=== PATIENT | female | born 1950 | race Caucasian/White ===

== ENCOUNTER 2023-11-20 23:15 | Emergency (ER) | payer MEDICARE, OTHER, SELFPAY ==
[2023-11-20 23:21] VITALS: BP 182/88
[2023-11-21 00:06] LABS: % Basophils 0.3 % (0-2); % Eosinophils 0.4 % (0-6); % Immature Granulocytes 0.2 % (0-0.5); % Lymphocytes 64.9 % (20.5-51.1); % Neutrophils 30.2 % (42.2-75.2); Absolute Eosinophils 0.1 10^3/uL (0-0.7); Absolute Lymphocytes 8.5 10^3/uL (1.2-3.4); Absolute Monocytes 0.5 10^3/uL (0.1-0.6); Hematocrit 36.2 % (37.0-47.0); Hemoglobin 12.6 g/dL (12.0-16.0); Mean Corp Hgb Conc. 34.8 g/dL (33.0-37.0); Mean Corpuscular Hgb 32.1 pg (27.0-31.0); Mean Corpuscular Volume 92.3 fL (81.0-99.0); Mean Platelet Volume 9.8 fL (7.4-10.4); Nucleated Red Blood Cells % 0 %; Platelet Count 221 10^3/uL (130-400); Red Blood Cell Count 3.92 10^6/uL (4.20-5.40); Red Cell Dist. Width 12.3 % (11.5-14.5); White Blood Cell Count 13.1 10^3/uL (4.8-10.8)
[2023-11-21 00:22] LABS: ALT (SGPT) 28 U/L (0-35); AST (SGOT) 27 U/L (14-36); Albumin 4.2 g/dl (3.5-5.0); Alkaline Phosphatase 58 U/L (38-126); Blood Urea Nitrogen 21 mg/dl (7-17); Calcium 9.1 mg/dl (8.4-10.2); Carbon Dioxide 28 mmol/L (22-30); Chloride 103 mmol/L (98-107); Glucose 119 mg/dl (70-99); Potassium 3.5 mmol/L (3.5-5.1); Sodium 135 mmol/L (135-145); Total Bilirubin 0.5 mg/dl (0.2-1.3); Total Protein 6.6 g/dl (6.3-8.2); eGFR > 60.00
[2023-11-21 01:02] VITALS: BMI 19.8
[2023-11-21 01:06] VITALS: BP 160/91
--- NOTE | 2023-11-21 01:22 | ED.GENMED ---
History of Present Illness
General
Chief Complaint: Heart Rate Problem
Source: patient
Time Seen by Provider: 11/21/23 01:06
Travel History
Have you had any contact with someone who has COVID-19?: No
Do you have any symptoms of coronavirus? Fever > 100 degrees, chills, cough, shortness of breath, sore throat, loss of taste or smell, muscle aches, or headache?: No
History of Present Illness
History of Present Illness:
73-year-old female presents to the emergency department for evaluation of palpitations, sense of dyspnea and mild headache. Symptoms have been present for the past couple days. Nothing seems to makes discomfort worse. Patient is prescribed
diltiazem for hypertension and she has been compliant with it. She denies taking any [id number] medications or increased caffeine use. She describes the chest discomfort as a vague sense of restriction. She feels better when she takes a
couple deep breaths.
Past History
Past History
ED Past Medical History: Cancer (CLL), Hypothyroidism and Other (MVP, DVT/PE )
ED Past Surgical History: Cholecystectomy and Gynecological
Social History
Tobacco: Non-smoker
Alcohol: None
Drug: None
Personal:
Living: with family
Phy Exam
Physical Exam
Physical Exam:
General: Awake, Alert, Oriented X3. No acute distress.
Vitals: unremarkable
Head: Atraumatic
Eyes: Pupils equal, EOMI
Throat: Airway intact, no exudates
Neck: Trachea midline
Lungs: Clear and equal b/l
Heart: Regular rate, no murmurs
Abd: Soft, Nontender, No pulsatile mass
Neuro: Nonfocal
Skin: Warm, dry, no rash
Extremities: pulses equal b/l, no edema
Course
Orders/Labs/Results
Orders:
Orders
11/20/23 23:19
EKG [Electrocardiogram (*1)] Urgent
Reason for Study: Palpitations
11/20/23 23:20
EKG- Treatment ONCE
11/20/23 23:24
CMP [Comprehensive Metabolic Panel] Urgent
Complete Blood Count/With Diff Urgent
11/21/23 01:12
Troponin I Urgent
11/21/23 01:21
CR Chest - 2 Views Urgent
Comment:
Reason For Exam: chest pain
11/21/23 01:41
Urinalysis Reflex To Culture Urgent
Date Specimen was Collected: 11/21/23
Time Specimen was Collected: 01:25
Urine Microscopic Reflex Cult Urgent
Abnormal Lab Results
11/21/23 11/21/23
00:01 01:41
WBC 13.1 H 10^3/uL
(4.8-10.8)
RBC 3.92 L 10^6/uL
(4.20-5.40)
Hct 36.2 L %
(37.0-47.0)
MCH 32.1 H pg
(27.0-31.0)
Absolute Lymphs (auto) 8.5 H 10^3/uL
(1.2-3.4)
Neutrophils % 30.2 L %
(42.2-75.2)
Lymphocytes % 64.9 H %
(20.5-51.1)
BUN 21 H mg/dl
(7-17)
Glucose 119 H mg/dl
(70-99)
Leukocyte Esterase Rfl Trace A
(Negative)
11/21/23 00:01
11/21/23 00:01
Vital Signs
Initial and Last Documented VS:
Initial Vital Signs
Temp Pulse Resp BP Pulse Ox
97.8 F 70 18 182/88 100
11/20/23 23:21 11/20/23 23:21 11/20/23 23:21 11/20/23 23:21 11/20/23 23:21
Last Documented Vital Signs
Temp Pulse Resp BP Pulse Ox
97.8 F 70 12 136/71 95
11/20/23 23:21 11/21/23 02:30 11/21/23 02:30 11/21/23 02:09 11/21/23 02:30
MDM/Problems Addressed
Differential Diagnosis Includes:
PVCs, PACs, cardiac dysrhythmia
MDM/Problems Addressed:
Patient presents with sensation of palpitations. Workup here is unremarkable. No dysrhythmia noted on the monitor. Patient stable for discharge home and outpatient follow-up.
Chronic conditions affecting care: HTN
*Radiology
Radiology exam reviewed: preliminary read by ED provider (No acute disease noted on my personal review of the chest x-ray)
*Pulse Oximetry
Patient hypoxic: no
*EKG
Interpreted by ED Provider?: Yes
Interpretation: abnormal
Heart Rate: 55
Rate: bradycardiac
Rhythm: sinus
[place]: normal axis
Interval: normal interval
QRS Pattern: normal QRS
Ischemia: no ischemia
*Sr Community Manager Interpretation
Rate: bradycardiac
Interpretation: abnormal
Heart Rate: 55
Rhythm: sinus
*Critical Care Note
Total Time (30-74mins, 75-104mins- exclusive of procedures): Not Applicable
ED Attending Note
-
Portions of this chart may have been created with voice recognition software.� Occasional wrong word or��sound alike� substitutions may have occurred due to the inherent limitations of voice recognition software.
Discharge Plan
Departure
Patient Disposition: Home (Routine Discharge)
Date of Disposition: 11/21/23
Time of Disposition: 02:58
Patient with high blood pressure during this ER visit?: Yes
Condition: Good
Discharge Problem:
Palpitations
Instructions: Palpitations (DC), BLOOD PRESSURE
Prescriptions:
No Action
thyroid (pork) [Garnett Thyroid] 30 MG tablet
45 mg PO DAILY
calcium carbonate [Oyster Shell Calcium 500] 500 MG tablet
500 mg PO BID@1200,1800
ascorbic acid (vitamin C) [Vitamin C] 500 MG tablet
500 mg PO DAILY
digestive enzymes 1 TAB.CHEW tablet,chewable
1 tab.chew PO AC
cholecalciferol (vitamin D3) 2,000 UNITS tablet
2,000 unit PO DAILY
multivitamin with folic acid [Tab-A-Matthew] 1 TABLET tablet
1 tab PO DAILY
magnesium oxide 400 MG tablet
400 mg PO BID@1800,2200
Vitamin B Liquid
1 drp PO DAILY
Vitamin B12 Sublingual
1 tab sublingual DAILY
Eliquis 5 MG tablet
5 mg PO BID Qty: 60 0RF
Rx Instructions:
take 10 twice a day for 14 doses (1 week) then 5 md twice a day
diltiazem HCl 120 MG capsule,extended release 24hr
120 mg PO BID
hydrochlorothiazide
PO DAILY
Rx Instructions:
unsure of dose
Interventions
Interventions:
*Risk Screen - Suicide Last Done: 11/20/23 23:21
*General Assessment Last Done: 11/21/23 01:07
*Neglect/Abuse Screening Last Done: 11/20/23 23:21
ED- Fall Risk Assessment Last Done: 11/21/23 01:08
*ED COVID-19 Vaccine History Last Done: 11/21/23 01:07
ED- Cardiac Assessment Last Done: 11/21/23 02:02
ED- Neurological Assessment Last Done: 11/21/23 02:02
ED- Pulmonary Assessment Last Done: 11/21/23 02:02
[2023-11-21 01:42] LABS: Troponin I < 0.012 ng/ml
[2023-11-21 02:09] VITALS: BP 136/71
[2023-11-21 02:29] LABS: Urine Albumin Negative (Neg - Trace); Urine Bilirubin Negative (Negative); Urine Character Clear (Clear); Urine Color Yellow; Urine Glucose Negative (Negative); Urine Ketone Negative (Negative); Urine Leukocyte Trace (Negative); Urine Nitrite Negative (Negative); Urine Occult Blood Negative (Negative); Urine Specific Gravity 1.015 (<1.030); Urine Urobilinogen Negative (Neg - 1+)
[2023-11-21 03:12] LABS: Urine Bacteria Few (Negative); Urine White Cell 0-2 /HPF (0-5)
== END 2023-11-21 03:05 | disposition home or self-care (01) ==
LOC: EMR 23:15
PROVIDERS: Student in an Organized Health Care Education/Training Program; EMERGENCY PHYSICIAN Emergency Medicine
DX: R00.2 Palpitations (principal); R06.00 Dyspnea, unspecified; R51.9 Headache, unspecified; I10 Essential (primary) hypertension; R07.89 Other chest pain; C91.10 Chronic lymphocytic leukemia of B-cell type not having achieved remission; E03.9 Hypothyroidism, unspecified; I34.1 Nonrheumatic mitral (valve) prolapse; Z86.718 Personal history of other venous thrombosis and embolism; Z86.711 Personal history of pulmonary embolism
CPT/HCPCS: 99283; 71046; 80053; 81003; 81015; 84484; 85025; 93005

== ENCOUNTER → 2023-12-10 09:40 | Outpatient (REF) | payer MEDICARE, OTHER, SELFPAY ==
[2023-12-10 10:31] LABS: % Basophils 0.4 % (0-2); % Eosinophils 1.1 % (0-6); % Immature Granulocytes 0.3 % (0-0.5); % Lymphocytes 58.5 % (20.5-51.1); % Monocytes 5.4 % (1.7-9.3); % Neutrophils 34.3 % (42.2-75.2); Absolute Basophils 0.1 10^3/uL (0-0.2); Absolute Eosinophils 0.1 10^3/uL (0-0.7); Absolute Lymphocytes 6.8 10^3/uL (1.2-3.4); Absolute Monocytes 0.6 10^3/uL (0.1-0.6); Hematocrit 38.8 % (37.0-47.0); Mean Corp Hgb Conc. 33.5 g/dL (33.0-37.0); Mean Corpuscular Volume 95.6 fL (81.0-99.0); Mean Platelet Volume 10.7 fL (7.4-10.4); Nucleated Red Blood Cells % 0 %; Platelet Count 189 10^3/uL (130-400); Red Blood Cell Count 4.06 10^6/uL (4.20-5.40); Red Cell Dist. Width 13.2 % (11.5-14.5); White Blood Cell Count 11.7 10^3/uL (4.8-10.8)
== END ==
LOC: REG 09:40
PROVIDERS: ATTENDING PHYSICIAN Internal Medicine Hematology & Oncology; FAMILY PHYSICIAN Family Medicine
DX: C91.10 Chronic lymphocytic leukemia of B-cell type not having achieved remission (principal); I82.B12 Acute embolism and thrombosis of left subclavian vein; C7A.029 Malignant carcinoid tumor of the large intestine, unspecified portion
CPT/HCPCS: 36415; 85025

== ENCOUNTER → 2023-12-18 06:27 | Day surgery (SDC) | payer MEDICARE, OTHER, SELFPAY | LOC: GI 06:27 | PROVIDERS: ATTENDING PHYSICIAN Internal Medicine Gastroenterology | DX: K31.89 Other diseases of stomach and duodenum (principal); R13.10 Dysphagia, unspecified; R00.2 Palpitations; R12 Heartburn; K44.9 Diaphragmatic hernia without obstruction or gangrene; K29.50 Unspecified chronic gastritis without bleeding | CPT/HCPCS: 43239; 88305; 88342 ==

== ENCOUNTER → 2023-12-26 09:00 | Outpatient (REF) | payer MEDICARE, OTHER, SELFPAY ==
[2023-12-26 10:19] LABS: % Basophils 0.5 % (0-2); % Eosinophils 1.3 % (0-6); % Immature Granulocytes 0.3 % (0-0.5); % Lymphocytes 57.8 % (20.5-51.1); % Monocytes 5.7 % (1.7-9.3); % Neutrophils 34.4 % (42.2-75.2); Absolute Basophils 0.1 10^3/uL (0-0.2); Absolute Eosinophils 0.2 10^3/uL (0-0.7); Absolute Lymphocytes 6.7 10^3/uL (1.2-3.4); Absolute Monocytes 0.7 10^3/uL (0.1-0.6); Hematocrit 39.6 % (37.0-47.0); Hemoglobin 13.3 g/dL (12.0-16.0); Mean Corp Hgb Conc. 33.6 g/dL (33.0-37.0); Mean Corpuscular Hgb 32.4 pg (27.0-31.0); Mean Corpuscular Volume 96.4 fL (81.0-99.0); Mean Platelet Volume 10.4 fL (7.4-10.4); Nucleated Red Blood Cells % 0 %; Platelet Count 221 10^3/uL (130-400); Red Blood Cell Count 4.11 10^6/uL (4.20-5.40); Red Cell Dist. Width 13.1 % (11.5-14.5); White Blood Cell Count 11.6 10^3/uL (4.8-10.8)
[2023-12-26 11:08] LABS: ALT (SGPT) 22 U/L (0-35); AST (SGOT) 27 U/L (14-36); Albumin 4.1 g/dl (3.5-5.0); Alkaline Phosphatase 60 U/L (38-126); Blood Urea Nitrogen 23 mg/dl (7-17); Calcium 9.2 mg/dl (8.4-10.2); Carbon Dioxide 31 mmol/L (22-30); Chloride 100 mmol/L (98-107); Glucose 74 mg/dl (70-99); Potassium 3.9 mmol/L (3.5-5.1); Sodium 134 mmol/L (135-145); Total Bilirubin 0.7 mg/dl (0.2-1.3); Total Protein 6.3 g/dl (6.3-8.2); eGFR > 60.00
[2023-12-26 11:21] LABS: Free T3 3.34 pg/ml (2.77-5.27); Free T4 0.82 ng/dl (0.78-2.19)
[2023-12-26 11:35] LABS: TSH 0.92 uIU/ml (0.47-4.68)
== END ==
LOC: REG 09:00
PROVIDERS: ATTENDING PHYSICIAN Internal Medicine Cardiovascular Disease; FAMILY PHYSICIAN Family Medicine
DX: I10 Essential (primary) hypertension (principal); E03.9 Hypothyroidism, unspecified
CPT/HCPCS: 36415; 80053; 84439; 84443; 84481; 85025

== ENCOUNTER → 2024-01-31 14:26 | Outpatient (REF) | payer MEDICARE, OTHER, SELFPAY | LOC: RCS 14:26 | PROVIDERS: ATTENDING PHYSICIAN Physician Assistant Medical; FAMILY PHYSICIAN Family Medicine | DX: I49.3 Ventricular premature depolarization (principal) | CPT/HCPCS: 93306 ==

== ENCOUNTER → 2024-02-06 06:35 | Outpatient (REF) | payer MEDICARE, OTHER, SELFPAY ==
[2024-02-06 07:10] LABS: % Basophils 0.5 % (0-2); % Eosinophils 0.9 % (0-6); % Immature Granulocytes 0.3 % (0-0.5); % Lymphocytes 64.6 % (20.5-51.1); % Monocytes 4.8 % (1.7-9.3); % Neutrophils 28.9 % (42.2-75.2); Absolute Basophils 0.1 10^3/uL (0-0.2); Absolute Eosinophils 0.1 10^3/uL (0-0.7); Absolute Lymphocytes 8.5 10^3/uL (1.2-3.4); Absolute Monocytes 0.6 10^3/uL (0.1-0.6); Absolute Neutrophils 3.8 10^3/uL (1.4-6.5); Hematocrit 40.8 % (37.0-47.0); Hemoglobin 13.3 g/dL (12.0-16.0); Mean Corp Hgb Conc. 32.6 g/dL (33.0-37.0); Mean Corpuscular Volume 98.3 fL (81.0-99.0); Mean Platelet Volume 10.3 fL (7.4-10.4); Nucleated Red Blood Cells % 0 %; Platelet Count 230 10^3/uL (130-400); Red Blood Cell Count 4.15 10^6/uL (4.20-5.40); Red Cell Dist. Width 12.7 % (11.5-14.5); White Blood Cell Count 13.2 10^3/uL (4.8-10.8)
[2024-02-06 07:45] LABS: ALT (SGPT) 20 U/L (0-35); AST (SGOT) 23 U/L (14-36); Albumin 4.1 g/dl (3.5-5.0); Alkaline Phosphatase 94 U/L (38-126); Blood Urea Nitrogen 23 mg/dl (7-17); Calcium 9.4 mg/dl (8.4-10.2); Carbon Dioxide 32 mmol/L (22-30); Chloride 103 mmol/L (98-107); Glucose 91 mg/dl (70-99); HDL Cholesterol 108 mg/dl; LDL Cholesterol, Calculated 58 mg/dl; Potassium 4.1 mmol/L (3.5-5.1); Sodium 141 mmol/L (135-145); Total Bilirubin 0.7 mg/dl (0.2-1.3); Total Cholesterol 181 mg/dl (50-199); Total Protein 6.4 g/dl (6.3-8.2); Triglyceride 77 mg/dl (10-149); Very Low Density Lipoprotein 15 mg/dl (0-30); eGFR > 60.00
[2024-02-06 08:15] LABS: TSH Reflex To Free T4 1.79 uIU/ml (0.47-4.68)
== END ==
LOC: REG 06:35
PROVIDERS: ATTENDING PHYSICIAN Internal Medicine Cardiovascular Disease; FAMILY PHYSICIAN Family Medicine
DX: I10 Essential (primary) hypertension (principal); C91.10 Chronic lymphocytic leukemia of B-cell type not having achieved remission; D3A.00 Benign carcinoid tumor of unspecified site; Z13.1 Encounter for screening for diabetes mellitus; E03.9 Hypothyroidism, unspecified; Z13.6 Encounter for screening for cardiovascular disorders
CPT/HCPCS: 36415; 80053; 80061; 84443; 85025

== ENCOUNTER → 2024-03-29 09:23 | Outpatient (REF) | payer MEDICARE, OTHER, SELFPAY | LOC: WDC 09:23 | PROVIDERS: ATTENDING PHYSICIAN Family Medicine | DX: Z12.31 Encounter for screening mammogram for malignant neoplasm of breast (principal) | CPT/HCPCS: 77063; 77067 ==

== ENCOUNTER → 2024-04-23 07:03 | Outpatient (REF) | payer MEDICARE, OTHER, SELFPAY ==
[2024-04-23 08:03] LABS: ALT (SGPT) 19 U/L (0-35); AST (SGOT) 24 U/L (14-36); Albumin 4.3 g/dl (3.5-5.0); Alkaline Phosphatase 65 U/L (38-126); Blood Urea Nitrogen 22 mg/dl (7-17); Calcium 9.6 mg/dl (8.4-10.2); Carbon Dioxide 33 mmol/L (22-30); Chloride 102 mmol/L (98-107); Glucose 94 mg/dl (70-99); HDL Cholesterol 105 mg/dl; LDL Cholesterol, Calculated 72 mg/dl; Potassium 4.2 mmol/L (3.5-5.1); Sodium 139 mmol/L (135-145); Total Bilirubin 0.8 mg/dl (0.2-1.3); Total Cholesterol 188 mg/dl (50-199); Total Protein 6.4 g/dl (6.3-8.2); Triglyceride 59 mg/dl (10-149); Very Low Density Lipoprotein 11 mg/dl (0-30); eGFR > 60.00
[2024-04-23 08:19] LABS: % Basophils 0.5 % (0-2); % Eosinophils 1.9 % (0-6); % Immature Granulocytes 0.2 % (0-0.5); % Lymphocytes 65.9 % (20.5-51.1); % Monocytes 4.2 % (1.7-9.3); % Neutrophils 27.3 % (42.2-75.2); Absolute Basophils 0.1 10^3/uL (0-0.2); Absolute Eosinophils 0.3 10^3/uL (0-0.7); Absolute Lymphocytes 8.5 10^3/uL (1.2-3.4); Absolute Monocytes 0.5 10^3/uL (0.1-0.6); Absolute Neutrophils 3.5 10^3/uL (1.4-6.5); Hematocrit 39.4 % (37.0-47.0); Hemoglobin 13.3 g/dL (12.0-16.0); Mean Corp Hgb Conc. 33.8 g/dL (33.0-37.0); Mean Corpuscular Volume 94.7 fL (81.0-99.0); Mean Platelet Volume 10.5 fL (7.4-10.4); Nucleated Red Blood Cells % 0 %; Platelet Count 217 10^3/uL (130-400); Red Blood Cell Count 4.16 10^6/uL (4.20-5.40); Red Cell Dist. Width 12.7 % (11.5-14.5); White Blood Cell Count 12.9 10^3/uL (4.8-10.8)
[2024-04-23 08:41] LABS: TSH Reflex To Free T4 1.64 uIU/ml (0.47-4.68)
== END ==
LOC: REG 07:03
PROVIDERS: ATTENDING PHYSICIAN Family Medicine
DX: E78.2 Mixed hyperlipidemia (principal); C91.10 Chronic lymphocytic leukemia of B-cell type not having achieved remission; Q60.0 Renal agenesis, unilateral; Z13.1 Encounter for screening for diabetes mellitus; E03.9 Hypothyroidism, unspecified; Z13.6 Encounter for screening for cardiovascular disorders
CPT/HCPCS: 36415; 80053; 80061; 84443; 85025

== ENCOUNTER → 2024-05-16 06:36 | Outpatient (REF) | payer MEDICARE, OTHER, SELFPAY | LOC: MRI 06:36 | PROVIDERS: ATTENDING PHYSICIAN Registered Nurse; FAMILY PHYSICIAN Family Medicine | DX: G44.321 Chronic post-traumatic headache, intractable (principal); S00.93XD Contusion of unspecified part of head, subsequent encounter; V89.2XXD Person injured in unspecified motor-vehicle accident, traffic, subsequent encounter | CPT/HCPCS: 70551 ==

== ENCOUNTER → 2024-06-09 13:03 | Outpatient (REF) | payer MEDICARE, OTHER, SELFPAY ==
[2024-06-09 15:22] LABS: Hematocrit 37.5 % (37.0-47.0); Hemoglobin 12.3 g/dL (12.0-16.0); Mean Corp Hgb Conc. 32.8 g/dL (33.0-37.0); Mean Corpuscular Hgb 31.3 pg (27.0-31.0); Mean Corpuscular Volume 95.4 fL (81.0-99.0); Mean Platelet Volume 11.2 fL (7.4-10.4); Platelet Count 213 10^3/uL (130-400); Red Blood Cell Count 3.93 10^6/uL (4.20-5.40); Red Cell Dist. Width 12.1 % (11.5-14.5); White Blood Cell Count 12.7 10^3/uL (4.8-10.8)
[2024-06-09 15:44] LABS: % Basophils 0.4 % (0-2); % Eosinophils 0.6 % (0-6); % Immature Granulocytes 0.2 % (0-0.5); % Lymphocytes 54.9 % (20.5-51.1); % Monocytes 4.5 % (1.7-9.3); % Neutrophils 39.4 % (42.2-75.2); Absolute Basophils 0.1 10^3/uL (0-0.2); Absolute Eosinophils 0.1 10^3/uL (0-0.7); Absolute Monocytes 0.6 10^3/uL (0.1-0.6); Nucleated Red Blood Cells % 0 %
[2024-06-09 17:36] LABS: IgG 613 mg/dl (700-1600)
== END ==
LOC: REG 13:03
PROVIDERS: ATTENDING PHYSICIAN Internal Medicine Hematology & Oncology; FAMILY PHYSICIAN Family Medicine
DX: C91.10 Chronic lymphocytic leukemia of B-cell type not having achieved remission (principal); I82.B12 Acute embolism and thrombosis of left subclavian vein; C7A.029 Malignant carcinoid tumor of the large intestine, unspecified portion
CPT/HCPCS: 36415; 82784; 85025

== ENCOUNTER → 2024-07-24 09:50 | Outpatient (REF) | payer MEDICARE, OTHER, SELFPAY ==
[2024-07-24 10:29] LABS: Urine Albumin Negative (Neg - Trace); Urine Bilirubin Negative (Negative); Urine Character Clear (Clear); Urine Color Straw; Urine Glucose Negative (Negative); Urine Ketone Negative (Negative); Urine Leukocyte Negative (Negative); Urine Nitrite Negative (Negative); Urine Occult Blood Negative (Negative); Urine Specific Gravity 1.005 (<1.030); Urine Urobilinogen Negative (Neg - 1+)
[2024-07-24 10:46] LABS: Mean Corp Hgb Conc. 33.3 g/dL (33.0-37.0); Mean Corpuscular Hgb 31.3 pg (27.0-31.0); Mean Platelet Volume 9.9 fL (7.4-10.4); Platelet Count 224 10^3/uL (130-400); Red Blood Cell Count 4.15 10^6/uL (4.20-5.40); Red Cell Dist. Width 12.8 % (11.5-14.5); White Blood Cell Count 15.2 10^3/uL (4.8-10.8)
[2024-07-24 11:12] LABS: % Basophils 0.4 % (0-2); % Immature Granulocytes 0.3 % (0-0.5); % Lymphocytes 63.1 % (20.5-51.1); % Neutrophils 31.2 % (42.2-75.2); Absolute Basophils 0.1 10^3/uL (0-0.2); Absolute Eosinophils 0.2 10^3/uL (0-0.7); Absolute Lymphocytes 9.6 10^3/uL (1.2-3.4); Absolute Monocytes 0.6 10^3/uL (0.1-0.6); Absolute Neutrophils 4.8 10^3/uL (1.4-6.5); Blood Urea Nitrogen 18 mg/dl (7-17); Calcium 9.2 mg/dl (8.4-10.2); Carbon Dioxide 29 mmol/L (22-30); Chloride 101 mmol/L (98-107); Glucose 95 mg/dl (70-99); Nucleated Red Blood Cells % 0.1 %; Potassium 3.8 mmol/L (3.5-5.1); Sodium 139 mmol/L (135-145); eGFR > 60.00
[2024-07-24 11:35] LABS: TSH 0.95 uIU/ml (0.47-4.68)
[2024-07-24 11:54] LABS: Vitamin B12 986 pg/ml (239-931)
== END ==
LOC: REG 09:50
PROVIDERS: FAMILY PHYSICIAN Family Medicine
DX: N39.0 Urinary tract infection, site not specified (principal); Q60.0 Renal agenesis, unilateral; I10 Essential (primary) hypertension; Z79.899 Other long term (current) drug therapy; R41.3 Other amnesia
CPT/HCPCS: 36415; 80048; 81003; 82607; 84443; 85025; 87086

== ENCOUNTER → 2024-08-01 12:01 | Outpatient (REF) | payer MEDICARE, OTHER, SELFPAY | LOC: REG 12:01 | PROVIDERS: ATTENDING PHYSICIAN Nurse Practitioner Adult Health; FAMILY PHYSICIAN Family Medicine | DX: C91.10 Chronic lymphocytic leukemia of B-cell type not having achieved remission (principal); I82.B12 Acute embolism and thrombosis of left subclavian vein; C7A.029 Malignant carcinoid tumor of the large intestine, unspecified portion | CPT/HCPCS: 36415; 86316 ==

== ENCOUNTER → 2024-08-04 09:33 | Outpatient (REF) | payer MEDICARE, OTHER, SELFPAY ==
[2024-08-06 18:47] LABS: 24 Hour Urine Total Volume 2850 mL; 5HIAA, 24 Hour Urine 5 mg/d (0-15); 5HIAA, Urine 1.6 mg/L; 5HIAA/Creatinine Ratio 5 mg/gCR (0-14); Creatinine, Urine 24 Hour 998 mg/d (500-1400); Creatinine, Urine per Volume 35 mg/dL; Urine Collection Length 24 hr
== END ==
LOC: REG 09:33
PROVIDERS: ATTENDING PHYSICIAN Nurse Practitioner Adult Health; FAMILY PHYSICIAN Family Medicine
DX: C91.10 Chronic lymphocytic leukemia of B-cell type not having achieved remission (principal); I82.B12 Acute embolism and thrombosis of left subclavian vein; C7A.029 Malignant carcinoid tumor of the large intestine, unspecified portion
CPT/HCPCS: 81050; 83497

== ENCOUNTER → 2024-08-09 07:16 | Outpatient (REF) | payer MEDICARE, OTHER, SELFPAY ==
[2024-08-09 08:47] LABS: Hematocrit 40.7 % (37.0-47.0); Hemoglobin 12.8 g/dL (12.0-16.0); Mean Corp Hgb Conc. 31.4 g/dL (33.0-37.0); Mean Corpuscular Hgb 31.4 pg (27.0-31.0); Mean Corpuscular Volume 99.8 fL (81.0-99.0); Mean Platelet Volume 10.8 fL (7.4-10.4); Platelet Count 229 10^3/uL (130-400); Red Blood Cell Count 4.08 10^6/uL (4.20-5.40); Red Cell Dist. Width 13.2 % (11.5-14.5); White Blood Cell Count 13.9 10^3/uL (4.8-10.8)
[2024-08-09 09:14] LABS: ALT (SGPT) 25 U/L (0-35); AST (SGOT) 28 U/L (14-36); Albumin 3.8 g/dl (3.5-5.0); Alkaline Phosphatase 77 U/L (38-126); Blood Urea Nitrogen 22 mg/dl (7-17); Calcium 8.9 mg/dl (8.4-10.2); Carbon Dioxide 32 mmol/L (22-30); Chloride 102 mmol/L (98-107); Glucose 79 mg/dl (70-99); HDL Cholesterol 106 mg/dl; LDL Cholesterol, Calculated 74 mg/dl; Sodium 139 mmol/L (135-145); Total Bilirubin 0.7 mg/dl (0.2-1.3); Total Cholesterol 189 mg/dl (50-199); Triglyceride 47 mg/dl (10-149); Very Low Density Lipoprotein 9 mg/dl (0-30); eGFR > 60.00
[2024-08-09 09:44] LABS: Absolute Neutrophils -Man Diff 5.4 10^3/uL (1.4-6.5); Atypical Lymphocytes 14 %; Band Neutrophils 0 % (0-3); Eosinophils 3 % (0-6); Lymphocytes 42 % (20-51); Monocytes 1 % (2-9); Platelets Checked Yes; Segmented Neutrophils 39 % (42-75)
[2024-08-09 09:45] LABS: Normal RBC Morphology Yes; Total Cells Counted 100
== END ==
LOC: REG 07:16
PROVIDERS: ATTENDING PHYSICIAN Family Medicine
DX: Z13.1 Encounter for screening for diabetes mellitus (principal); C91.10 Chronic lymphocytic leukemia of B-cell type not having achieved remission; E03.9 Hypothyroidism, unspecified
CPT/HCPCS: 36415; 80053; 80061; 84443; 85025

== ENCOUNTER → 2024-09-08 15:44 | Outpatient (REF) | payer MEDICARE, OTHER, SELFPAY ==
[2024-09-08 16:59] LABS: D-Dimer 0.28 ug/mlFEU (0.00-0.50)
[2024-09-08 17:54] LABS: Hematocrit 37.3 % (37.0-47.0); Hemoglobin 12.3 g/dL (12.0-16.0); Mean Corpuscular Hgb 31.4 pg (27.0-31.0); Mean Corpuscular Volume 95.2 fL (81.0-99.0); Mean Platelet Volume 10.4 fL (7.4-10.4); Platelet Count 263 10^3/uL (130-400); Red Blood Cell Count 3.92 10^6/uL (4.20-5.40); Red Cell Dist. Width 13.1 % (11.5-14.5); White Blood Cell Count 19.6 10^3/uL (4.8-10.8)
[2024-09-08 18:14] LABS: % Basophils 0.4 % (0-2); % Eosinophils 0.5 % (0-6); % Immature Granulocytes 0.4 % (0-0.5); % Lymphocytes 47.7 % (20.5-51.1); % Monocytes 4.6 % (1.7-9.3); % Neutrophils 46.4 % (42.2-75.2); Absolute Basophils 0.1 10^3/uL (0-0.2); Absolute Eosinophils 0.1 10^3/uL (0-0.7); Absolute Immature Granulocytes 0.1 10^3/uL (0-0.05); Absolute Lymphocytes 9.3 10^3/uL (1.2-3.4); Absolute Monocytes 0.9 10^3/uL (0.1-0.6); Absolute Neutrophils 9.1 10^3/uL (1.4-6.5); Nucleated Red Blood Cells % 0 %
== END ==
LOC: RAD 15:44
PROVIDERS: ATTENDING PHYSICIAN Nurse Practitioner Acute Care; FAMILY PHYSICIAN Family Medicine; REFERRING PHYSICIAN Internal Medicine Hematology & Oncology
DX: R10.9 Unspecified abdominal pain (principal); C91.10 Chronic lymphocytic leukemia of B-cell type not having achieved remission; I82.B12 Acute embolism and thrombosis of left subclavian vein; C7A.029 Malignant carcinoid tumor of the large intestine, unspecified portion
CPT/HCPCS: 36415; 74177; 85025; 85379; Q9967

== ENCOUNTER → 2024-09-09 09:08 | Outpatient (REF) | payer MEDICARE, OTHER, SELFPAY | LOC: HWRAD 09:08 | PROVIDERS: ATTENDING PHYSICIAN Nurse Practitioner; FAMILY PHYSICIAN Family Medicine | DX: N30.10 Interstitial cystitis (chronic) without hematuria (principal) | CPT/HCPCS: 76770; 76856 ==

== ENCOUNTER → 2024-12-08 09:24 | Outpatient (REF) | payer MEDICARE, OTHER, SELFPAY ==
[2024-12-08 10:33] LABS: Hemoglobin 13.5 g/dL (12.0-16.0); Mean Corp Hgb Conc. 32.9 g/dL (33.0-37.0); Mean Corpuscular Hgb 31.3 pg (27.0-31.0); Mean Corpuscular Volume 94.9 fL (81.0-99.0); Mean Platelet Volume 11.3 fL (7.4-10.4); Platelet Count 204 10^3/uL (130-400); Red Blood Cell Count 4.32 10^6/uL (4.20-5.40); Red Cell Dist. Width 12.9 % (11.5-14.5)
[2024-12-08 10:48] LABS: % Basophils 0.5 % (0-2); % Immature Granulocytes 0.3 % (0-0.5); % Lymphocytes 52.8 % (20.5-51.1); % Neutrophils 40.4 % (42.2-75.2); Absolute Basophils 0.1 10^3/uL (0-0.2); Absolute Eosinophils 0.1 10^3/uL (0-0.7); Absolute Lymphocytes 5.8 10^3/uL (1.2-3.4); Absolute Monocytes 0.6 10^3/uL (0.1-0.6); Absolute Neutrophils 4.4 10^3/uL (1.4-6.5); Nucleated Red Blood Cells % 0 %
[2024-12-08 10:50] LABS: Iron 103 ug/dl (37-170)
[2024-12-08 10:53] LABS: IgG 787 mg/dl (700-1600)
[2024-12-08 11:00] LABS: Percent Saturation 29 % (20-50); Total Iron Binding Capacity 344 ug/dl (265-497)
[2024-12-08 11:21] LABS: Ferritin 19.7 ng/ml (11.1-264.0)
[2024-12-08 11:53] LABS: Folate > 20.0 ng/ml (2.76-20); Vitamin B12 929 pg/ml (239-931)
== END ==
LOC: REG 09:24
PROVIDERS: ATTENDING PHYSICIAN Internal Medicine Hematology & Oncology; FAMILY PHYSICIAN Family Medicine
DX: C91.10 Chronic lymphocytic leukemia of B-cell type not having achieved remission (principal); I82.B12 Acute embolism and thrombosis of left subclavian vein; C7A.029 Malignant carcinoid tumor of the large intestine, unspecified portion; R10.9 Unspecified abdominal pain; Z79.899 Other long term (current) drug therapy
CPT/HCPCS: 36415; 82607; 82728; 82746; 82784; 83540; 83550; 85025

== ENCOUNTER → 2024-12-25 06:53 | Outpatient (REF) | payer MEDICARE, OTHER, SELFPAY ==
[2024-12-25 11:47] LABS: ALT (SGPT) 21 U/L (0-35); AST (SGOT) 24 U/L (14-36); Alkaline Phosphatase 71 U/L (38-126); Blood Urea Nitrogen 23 mg/dl (7-17); Calcium 9.1 mg/dl (8.4-10.2); Carbon Dioxide 30 mmol/L (22-30); Chloride 104 mmol/L (98-107); Glucose 82 mg/dl (70-99); HDL Cholesterol 94 mg/dl; LDL Cholesterol, Calculated 55 mg/dl; Magnesium 2.3 mg/dl (1.6-2.3); Potassium 3.9 mmol/L (3.5-5.1); Sodium 141 mmol/L (135-145); Total Bilirubin 0.8 mg/dl (0.2-1.3); Total Cholesterol 160 mg/dl (50-199); Total Protein 6.6 g/dl (6.3-8.2); Triglyceride 58 mg/dl (10-149); Very Low Density Lipoprotein 11 mg/dl (0-30); eGFR 58.75
[2024-12-25 13:17] LABS: TSH Reflex To Free T4 1.78 uIU/ml (0.47-4.68)
== END ==
LOC: REG 06:53
PROVIDERS: ATTENDING PHYSICIAN Family Medicine; OTHER PHYSICIAN Physician Assistant Medical
DX: Z13.6 Encounter for screening for cardiovascular disorders (principal); Q60.0 Renal agenesis, unilateral; Z13.1 Encounter for screening for diabetes mellitus; E03.9 Hypothyroidism, unspecified
CPT/HCPCS: 36415; 80053; 80061; 83735; 84443

== ENCOUNTER → 2025-01-01 14:22 | Outpatient (REF) | payer MEDICARE, OTHER, SELFPAY | LOC: HWRCS 14:22 | PROVIDERS: ATTENDING PHYSICIAN Physician Assistant Medical; FAMILY PHYSICIAN Family Medicine | DX: I49.3 Ventricular premature depolarization (principal); I34.1 Nonrheumatic mitral (valve) prolapse | CPT/HCPCS: 93306 ==

== ENCOUNTER → 2025-01-29 08:45 | Outpatient (REF) | payer MEDICARE, OTHER, SELFPAY | LOC: RCS 08:45 | PROVIDERS: ATTENDING PHYSICIAN Internal Medicine Cardiovascular Disease; FAMILY PHYSICIAN Family Medicine | DX: I10 Essential (primary) hypertension (principal); I49.3 Ventricular premature depolarization; I34.1 Nonrheumatic mitral (valve) prolapse | CPT/HCPCS: 93017; 93350 ==

== ENCOUNTER → 2025-02-05 09:00 | Outpatient (REF) | payer MEDICARE, OTHER, SELFPAY ==
[2025-02-05 10:24] LABS: % Basophils 0.3 % (0-2); % Eosinophils 0.5 % (0-6); % Immature Granulocytes 0.2 % (0-0.5); % Lymphocytes 59.4 % (20.5-51.1); % Monocytes 5.1 % (1.7-9.3); % Neutrophils 34.5 % (42.2-75.2); Absolute Eosinophils 0.1 10^3/uL (0-0.7); Absolute Lymphocytes 7.6 10^3/uL (1.2-3.4); Absolute Monocytes 0.7 10^3/uL (0.1-0.6); Absolute Neutrophils 4.4 10^3/uL (1.4-6.5); Hematocrit 41.9 % (37.0-47.0); Hemoglobin 13.6 g/dL (12.0-16.0); Mean Corp Hgb Conc. 32.5 g/dL (33.0-37.0); Mean Corpuscular Volume 95.4 fL (81.0-99.0); Mean Platelet Volume 11.1 fL (7.4-10.4); Nucleated Red Blood Cells % 0 %; Platelet Count 196 10^3/uL (130-400); Red Blood Cell Count 4.39 10^6/uL (4.20-5.40); Red Cell Dist. Width 13.2 % (11.5-14.5); White Blood Cell Count 12.9 10^3/uL (4.8-10.8)
[2025-02-05 10:37] LABS: NT-proBNP 378 pg/ml
== END ==
LOC: REG 09:00
PROVIDERS: ATTENDING PHYSICIAN Internal Medicine Cardiovascular Disease; FAMILY PHYSICIAN Family Medicine
DX: C91.10 Chronic lymphocytic leukemia of B-cell type not having achieved remission (principal); D3A.00 Benign carcinoid tumor of unspecified site
CPT/HCPCS: 36415; 83880; 85025

== ENCOUNTER → 2025-02-23 06:37 | Outpatient (REF) | payer MEDICARE, OTHER, SELFPAY | LOC: RCS 06:37 | PROVIDERS: ATTENDING PHYSICIAN Internal Medicine Cardiovascular Disease; FAMILY PHYSICIAN Family Medicine | DX: R07.89 Other chest pain (principal); I49.3 Ventricular premature depolarization | CPT/HCPCS: 78452; 93017; A9500 ==

== ENCOUNTER → 2025-03-10 09:35 | Outpatient (REF) | payer MEDICARE, OTHER, SELFPAY ==
[2025-03-10 11:11] LABS: Blood Urea Nitrogen 20 mg/dl (7-17); Calcium 9.1 mg/dl (8.4-10.2); Carbon Dioxide 34 mmol/L (22-30); Chloride 105 mmol/L (98-107); Glucose 90 mg/dl (70-99); Potassium 4.0 mmol/L (3.5-5.1); Sodium 140 mmol/L (135-145); eGFR > 60.00
== END ==
LOC: REG 09:35
PROVIDERS: ATTENDING PHYSICIAN Internal Medicine Cardiovascular Disease; FAMILY PHYSICIAN Family Medicine
DX: I10 Essential (primary) hypertension (principal)
CPT/HCPCS: 36415; 80048

== ENCOUNTER → 2025-03-26 09:38 | Outpatient (REF) | payer MEDICARE, OTHER, SELFPAY | LOC: RAD 09:38 | PROVIDERS: ATTENDING PHYSICIAN Internal Medicine Cardiovascular Disease; FAMILY PHYSICIAN Family Medicine | DX: I49.3 Ventricular premature depolarization (principal); R94.39 Abnormal result of other cardiovascular function study | CPT/HCPCS: 75574; Q9967 ==

== ENCOUNTER → 2025-04-02 10:07 | Outpatient (REF) | payer MEDICARE, OTHER, SELFPAY | LOC: WDC 10:07 | PROVIDERS: ATTENDING PHYSICIAN Family Medicine | DX: M81.0 Age-related osteoporosis without current pathological fracture (principal); Z12.31 Encounter for screening mammogram for malignant neoplasm of breast | CPT/HCPCS: 77063; 77067; 77080 ==

== ENCOUNTER → 2025-06-16 09:52 | Outpatient (REF) | payer MEDICARE, OTHER, SELFPAY ==
[2025-06-16 11:11] LABS: Hematocrit 40.2 % (37.0-47.0); Hemoglobin 13.1 g/dL (12.0-16.0); Mean Corp Hgb Conc. 32.6 g/dL (33.0-37.0); Mean Corpuscular Volume 93.9 fL (81.0-99.0); Platelet Count 187 10^3/uL (130-400); Red Cell Dist. Width 13.1 % (11.5-14.5)
[2025-06-16 11:27] LABS: Nucleated Red Blood Cells % 0 %
[2025-06-16 12:01] LABS: LDH 179 U/L (120-246)
== END ==
LOC: REG 09:52
PROVIDERS: ATTENDING PHYSICIAN Internal Medicine Hematology & Oncology; FAMILY PHYSICIAN Family Medicine
DX: C91.10 Chronic lymphocytic leukemia of B-cell type not having achieved remission (principal); I82.B12 Acute embolism and thrombosis of left subclavian vein; C7A.029 Malignant carcinoid tumor of the large intestine, unspecified portion; R10.9 Unspecified abdominal pain
CPT/HCPCS: 36415; 83615; 85025

== ENCOUNTER → 2025-08-10 06:31 | Outpatient (REF) | payer MEDICARE, OTHER, SELFPAY ==
[2025-08-10 07:14] LABS: Hematocrit 44.4 % (37.0-47.0); Hemoglobin 14.1 g/dL (12.0-16.0); Mean Corp Hgb Conc. 31.8 g/dL (33.0-37.0); Mean Corpuscular Volume 97.2 fL (81.0-99.0); Platelet Count 215 10^3/uL (130-400); Red Cell Dist. Width 13.0 % (11.5-14.5)
[2025-08-10 07:40] LABS: Nucleated Red Blood Cells % 0 %
[2025-08-10 08:32] LABS: ALT (SGPT) 23 U/L (0-35); AST (SGOT) 25 U/L (14-36); Albumin 4.3 g/dl (3.5-5.0); Alkaline Phosphatase 73 U/L (38-126); Blood Urea Nitrogen 14 mg/dl (7-17); Calcium 9.3 mg/dl (8.4-10.2); Carbon Dioxide 32 mmol/L (22-30); Chloride 102 mmol/L (98-107); Glucose 88 mg/dl (70-99); HDL Cholesterol 101 mg/dl; LDL Cholesterol, Calculated 75 mg/dl; Potassium 3.6 mmol/L (3.5-5.1); Sodium 138 mmol/L (135-145); Total Protein 6.9 g/dl (6.3-8.2); Very Low Density Lipoprotein 14 mg/dl (0-30); eGFR > 60.00
== END ==
LOC: REG 06:31
PROVIDERS: ATTENDING PHYSICIAN Family Medicine
DX: Z13.6 Encounter for screening for cardiovascular disorders (principal); E03.9 Hypothyroidism, unspecified; C91.10 Chronic lymphocytic leukemia of B-cell type not having achieved remission; D3A.00 Benign carcinoid tumor of unspecified site
CPT/HCPCS: 36415; 80053; 80061; 84443; 85025